=== PATIENT | male | born 2000 | race Caucasian/White ===

== ENCOUNTER 2024-05-10 13:51 | Emergency (ER) | payer MEDICAID ==
[~2024-05-10] VITALS: Ht 162.6 cm; Wt 81.6 kg
[2024-05-10 14:06] VITALS: O2SAT 100
[2024-05-10 14:11] VITALS: TEMP 37.1; O2SAT 100
[2024-05-10 16:41] VITALS: BP 125/88; PULSE 60; RESP 16
[2024-05-10] MEDS: METHOCARBAMOL 750MG TABLET PO SCH (16:41)
[2024-05-10] MEDS: IBUPROFEN 400MG TABLET PO ONE (16:41)
[2024-05-10] MEDS ORDERED: METH-653 MT (17:12)
[2024-05-10] MEDS ORDERED: LIDO700A15 TP (17:12)
[2024-05-10] MEDS ORDERED: IBUP-2028 MT (17:12)
== END 2024-05-10 17:45 | disposition home or self-care (01) ==
LOC: ER 13:51
DX: T14.8XXA Other injury of unspecified body region, initial encounter (principal); Z87.891 Personal history of nicotine dependence; V89.2XXA Person injured in unspecified motor-vehicle accident, traffic, initial encounter; Y93.89 Activity, other specified; Y92.410 Unspecified street and highway as the place of occurrence of the external cause; Y99.8 Other external cause status
CPT/HCPCS: 71045; 99283